=== PATIENT | female | born 1960 | race Caucasian/White ===

== ENCOUNTER 2019-03-16 08:34 | Inpatient (IN) | payer BC ==
[~2019-03-16] VITALS: Ht 162.6 cm; Wt 52.3 kg
[2019-03-16] MEDS ORDERED: amiodarone/D5 360MG/200ML BAG 200 ML IV ONE (08:47)
[2019-03-16] MEDS ORDERED: amiodarone 150mg/dext, iso-os 100 ML IV ONE (08:50)
[2019-03-16 09:39] LABS: BASOPHILS # (AUTO) 0.1 X10'3 (0-0.2); BASOPHILS % (AUTO) 0.5 % (0-1); EOSINOPHILS # (AUTO) 0.1 X10'3 (0-0.9); EOSINOPHILS % (AUTO) 1.2 % (0-6); HEMATOCRIT 48.1 % (35.0-45.0); HEMOGLOBIN 15.8 g/dl (12.0-16.0); LYMPHOCYTES # (AUTO) 0.8 X10'3 (1.1-4.8); LYMPHOCYTES % (AUTO) 6.7 % (21-51); MEAN CORPUSCULAR HEMOGLOBIN 32.9 PG (27.0-31.0); MEAN CORPUSCULAR HGB CONC 32.9 g/dL (33.0-36.5); MEAN CORPUSCULAR VOLUME 99.9 FL (78-98); MEAN PLATELET VOLUME 7.9 FL (7.4-10.4); MONOCYTES # (AUTO) 0.4 X10'3 (0-0.9); MONOCYTES % (AUTO) 3.6 % (2-12); NEUTROPHILS # (AUTO) 9.9 X10'3 (1.8-7.7); PLATELET COUNT 300 X10'3 (140-440); RED BLOOD COUNT 4.81 X10'6 (4.20-5.60); RED CELL DISTRIBUTION WIDTH 14.5 % (11.5-14.5); WHITE BLOOD COUNT 11.2 X10'3 (4.5-11.0)
[2019-03-16 09:47] LABS: ALANINE AMINOTRANSFERASE 46 U/L (12-78); ALBUMIN 3.6 G/DL (3.4-5.0); ALBUMIN/GLOBULIN RATIO 0.8 (1.1-1.5); ALKALINE PHOSPHATASE 130 IU/L (46-116); ANION GAP 3 (8-16); ASPARTATE AMINO TRANSFERASE 37 U/L (10-37); BILIRUBIN,TOTAL 0.8 MG/DL (0.1-1.0); BLOOD UREA NITROGEN 14 MG/DL (7-18); BUN/CREATININE RATIO 31.8 (6.6-38.0); CALCIUM 9.6 MG/DL (8.5-10.1); CHLORIDE 95 MMOL/L (99-107); CREATININE 0.44 MG/DL (0.40-0.90); GLUCOSE 102 MG/DL (70-104); INR 1.1 INR; PARTIAL THROMBOPLASTIN TIME 29 SECONDS (22-32); POTASSIUM 4.7 MMOL/L (3.5-5.1); SODIUM 135 MMOL/L (135-145); TOTAL CARBON DIOXIDE 36.6 MMOL/L (24-32); TOTAL PROTEIN 8.3 G/DL (6.4-8.2); eGFR > 90 ML/MIN
[2019-03-16 09:56] LABS: MAGNESIUM 1.6 MG/DL (1.5-2.4)
[2019-03-16 10:09] LABS: CLARITY,URINE SLIGHTLY CLOUDY (Clear); GLUCOSE, URINE NEGATIVE (Neg); KETONES,URINE NEGATIVE (Neg); LEUKOCYTE ESTERASE ,URINE NEGATIVE (Neg); NITRITES, URINE NEGATIVE (Neg); OCCULT BLOOD,URINE TRACE-INTACT (Neg); PROTEIN,URINE >=300 mg/dl (Neg); UROBILINOGEN,URINE 0.2 E.U/dL (0.2-1.0)
[2019-03-16] MEDS ORDERED: azithromycin/NS 500mg/250ml 250 ML IV ONE (10:10)
[2019-03-16] MEDS ORDERED: cefepime 1GM/NS ADD-VANTAGE 100 ML IV ONE (10:10)
[2019-03-16] MEDS ORDERED: albuterol 2.5 MG/3 ML nebule NEB ONE (10:15)
[2019-03-16] MEDS ORDERED: methylPREDNISolone sod succ 125mg/2ml vial IV ONE (10:15)
[2019-03-16 10:17] LABS: COLOR,URINE DARK YELLOW (Yellow); UA COLLECTION TYPE CLN CATCH MIDSTREAM
[2019-03-16 10:20] LABS: BACTERIA,URINE FEW /HPF (Neg); MUCUS STRANDS MODERATE /LPF (Neg); RBC,URINE 0-2 /HPF (0-2); SQUAMOUS EPITHELIAL CELL,UR FEW /LPF (FEW)
[2019-03-16] MEDS ORDERED: magnesium 2GM in 50ml NS 50 ML IV ONE (10:20)
[2019-03-16] MEDS ORDERED: magnesium oxide 400mg tablet PO ONE (10:20)
[2019-03-16] MEDS ORDERED: iohexol 350MG/ML 100ml bottle IV ONE (10:34)
--- NOTE | 2019-03-16 11:44 | NUR ---
BACK FROM CT AND PICC NURSE AT BEDSIDE TO START SECOND LINE.
[2019-03-16] MEDS ORDERED: diltiazem 5mg/ml 5ml inj. IV ONE (12:35)
[2019-03-16] MEDS ORDERED: magnesium 4gm in 100ml NS 100 ML IV PRN (13:05)
[2019-03-16] MEDS ORDERED: potassium Cl 40MEQ/NS 500ml 500 ML IV PRN ×2 (13:05)
[2019-03-16] MEDS ORDERED: magnesium 2GM in 50ml NS 50 ML IV PRN (13:05)
[2019-03-16] MEDS: K and/or MAG REPLACEMENT MC SCH (13:05)
[2019-03-16] MEDS ORDERED: mag hydrox/Alum hydrox/simeth 30ml oral suspension PO PRN (13:05)
[2019-03-16] MEDS ORDERED: acetaminophen 325mg tablet PO PRN ×2 (13:05)
[2019-03-16] MEDS ORDERED: magnesium hydroxide 30ml (MOM) UD suspension PO PRN (13:05)
[2019-03-16] MEDS ORDERED: potassium Cl 20 mEq SR tablet PO PRN ×2 (13:05)
[2019-03-16] MEDS ORDERED: ondansetron/PF 4mg/2ml inj IV PRN (13:05)
[2019-03-16] MEDS ORDERED: HYDROcodone/acetaminophen 10/325mg tab PO PRN (13:05)
[2019-03-16] MEDS ORDERED: amiodarone/D5 360MG/200ML BAG 200 ML IV SCH (13:05)
[2019-03-16] MEDS ORDERED: magnesium Cl slow-release 64mg tablet PO PRN (13:05)
[2019-03-16] MEDS ORDERED: HYDROcodone/acetaminophen 5mg/325mg tablet PO PRN (13:05)
[2019-03-16] MEDS ORDERED: ipratropium/albuterol 3ml nebule NEB PRN (13:05)
[2019-03-16] MEDS ORDERED: METO-411 PO (13:21)
[2019-03-16] MEDS ORDERED: LISI-600 PO (13:21)
[2019-03-16] MEDS ORDERED: APIX5TAB3 PO (13:21)
[2019-03-16 14:13] LABS: HEMOGLOBIN A1C 5.8 % (4.5-6.2)
[2019-03-16 14:15] LABS: PHOSPHORUS 4.7 MG/DL (2.3-4.5)
[2019-03-16] MEDS ORDERED: MAGN400T6 PO (14:25)
[2019-03-16] MEDS ORDERED: MULT-933 PO (14:25)
[2019-03-16] MEDS ORDERED: ALBU8.5H8 INH (14:25)
[2019-03-16] MEDS: methylPREDNISolone sod succ 125mg/2ml vial IV SCH ×2 (14:32→21:54)
[2019-03-16] MEDS: ipratropium/albuterol 3ml nebule NEB SCH ×3 (14:39→23:13)
[2019-03-16] MEDS: cefepime 1GM/NS ADD-VANTAGE 100 ML IV SCH (16:17)
--- NOTE | 2019-03-16 19:30 | NUR ---
Patient in room PCU 3015. I have received report from lissa DURANT and had the opportunity to ask questions and assume patient care.
[2019-03-16 20:30] VITALS: BP 103/79
[2019-03-16] MEDS ORDERED: temazepam 15mg capsule PO PRN (21:00)
[2019-03-16] MEDS: magnesium Cl slow-release 64mg tablet PO SCH (21:55)
[2019-03-16] MEDS: apixaban 5mg tablet PO SCH (21:55)
[2019-03-16 22:00] VITALS: BP 115/79
--- NOTE | 2019-03-17 00:21 | NUR ---
pt had 3 beats and 5 beats of Vtach. Contacted dr rowley and got a one time order of labetalol 10mg IV once
[2019-03-17] MEDS ORDERED: metoprolol tartrate 1mg/ml inj IV ONE (01:00)
[2019-03-17] MEDS: cefepime 1GM/NS ADD-VANTAGE 100 ML IV SCH ×3 (01:12→15:49)
[2019-03-17] MEDS: methylPREDNISolone sod succ 125mg/2ml vial IV SCH ×4 (01:13→21:52)
[2019-03-17 03:00] VITALS: BP 124/73
--- NOTE | 2019-03-17 04:19 | NUR ---
pt HR fluctiating bt 110 -120, got an order from dr rowley to continue amiodarone drip
[2019-03-17] MEDS: amiodarone/D5 360MG/200ML BAG 200 ML IV SCH ×3 (05:22→12:16)
--- NOTE | 2019-03-17 06:00 | NUR ---
Problems reprioritized. Patient report given, questions answered & plan of care reviewed with Monserrat DURANT.
--- NOTE | 2019-03-17 06:34 | NUR ---
Patient in room PCU 3015B. I have received report from Sandra DURANT at the bedside and had the opportunity to ask questions and assume patient care. Patient is awake and alert in bed, currently denies complaints at this time. Amio running per MD order. Bed is low and locked with call light in place, will continue to monitor patient at this time.
[2019-03-17 07:00] VITALS: BP 132/92
[2019-03-17 07:03] LABS: BASOPHILS % (AUTO) 0 % (0-1); EOSINOPHILS % (AUTO) 0 % (0-6); HEMATOCRIT 40.7 % (35.0-45.0); HEMOGLOBIN 13.5 g/dl (12.0-16.0); LYMPHOCYTES # (AUTO) 0.5 X10'3 (1.1-4.8); LYMPHOCYTES % (AUTO) 4.6 % (21-51); MEAN CORPUSCULAR HEMOGLOBIN 32.7 PG (27.0-31.0); MEAN CORPUSCULAR HGB CONC 33.2 g/dL (33.0-36.5); MEAN CORPUSCULAR VOLUME 98.5 FL (78-98); MEAN PLATELET VOLUME 8.2 FL (7.4-10.4); MONOCYTES # (AUTO) 0.1 X10'3 (0-0.9); MONOCYTES % (AUTO) 0.8 % (2-12); NEUTROPHILS # (AUTO) 11.1 X10'3 (1.8-7.7); NEUTROPHILS % (AUTO) 94.6 % (42-75); PLATELET COUNT 272 X10'3 (140-440); RED BLOOD COUNT 4.14 X10'6 (4.20-5.60); RED CELL DISTRIBUTION WIDTH 14.7 % (11.5-14.5); WHITE BLOOD COUNT 11.7 X10'3 (4.5-11.0)
[2019-03-17] MEDS: ipratropium/albuterol 3ml nebule NEB SCH ×5 (07:08→23:00)
[2019-03-17 07:16] LABS: ALANINE AMINOTRANSFERASE 38 U/L (12-78); ALBUMIN/GLOBULIN RATIO 0.8 (1.1-1.5); ALKALINE PHOSPHATASE 93 IU/L (46-116); ANION GAP 4 (8-16); ASPARTATE AMINO TRANSFERASE 34 U/L (10-37); BILIRUBIN,TOTAL 0.6 MG/DL (0.1-1.0); BLOOD UREA NITROGEN 12 MG/DL (7-18); BUN/CREATININE RATIO 19.4 (6.6-38.0); CALCIUM 9.2 MG/DL (8.5-10.1); CHLORIDE 96 MMOL/L (99-107); CHOL/HDL RATIO 2.5 (0.00-4.99); CHOLESTEROL 150 MG/DL (0-200); CREATININE 0.62 MG/DL (0.40-0.90); GLUCOSE 132 MG/DL (70-104); HDL CHOLESTEROL 61 MG/DL (35-60); LDL CHOLESTEROL 84 MG/DL (50-100); MAGNESIUM 1.8 MG/DL (1.5-2.4); PHOSPHORUS 3.5 MG/DL (2.3-4.5); POTASSIUM 4.4 MMOL/L (3.5-5.1); SODIUM 135 MMOL/L (135-145); TOTAL CARBON DIOXIDE 34.9 MMOL/L (24-32); TOTAL PROTEIN 6.7 G/DL (6.4-8.2); TRIGLYCERIDES 40 MG/DL (20-135); eGFR > 90 ML/MIN
[2019-03-17] MEDS: magnesium Cl slow-release 64mg tablet PO SCH ×2 (07:56→21:53)
[2019-03-17] MEDS: magnesium oxide 400mg tablet PO SCH (07:56)
[2019-03-17] MEDS: metoprolol succinate 25mg (24-HOUR) SR. Tablet PO SCH ×2 (07:57→08:24)
[2019-03-17] MEDS: lisinopril 20mg tablet PO SCH (07:58)
[2019-03-17] MEDS: apixaban 5mg tablet PO SCH ×2 (07:58→21:53)
[2019-03-17] MEDS ORDERED: non-formulary drug (Metoprolol Succinate 1 TAB) PO SCH (08:00)
[2019-03-17] MEDS: K and/or MAG REPLACEMENT MC SCH (08:00)
[2019-03-17] MEDS: azithromycin/NS 500mg/250ml 250 ML IV SCH (08:09)
[2019-03-17 11:00] VITALS: BP 101/71
[2019-03-17 15:00] VITALS: BP 121/82
[2019-03-17] MEDS: diltiazem 30mg tablet PO SCH ×2 (16:43→21:53)
[2019-03-17 18:00] VITALS: BP 121/82
--- NOTE | 2019-03-17 18:15 | NUR ---
Patient in room PCU 3015. I have received report from Monserrat DURANT and had the opportunity to ask questions and assume patient care.
--- NOTE | 2019-03-17 18:51 | NUR ---
Problems reprioritized. Patient report given, questions answered & plan of care reviewed with Sandra DURANT. Patient stable at transfer of care.
[2019-03-17] MEDS: lactobacillus rhamnosus 10,000 MMU CELLS/CAPSULE PO SCH (21:52)
[2019-03-17 23:00] VITALS: BP 121/82
[2019-03-18] MEDS: cefepime 1GM/NS ADD-VANTAGE 100 ML IV SCH ×3 (01:01→14:11)
[2019-03-18] MEDS: methylPREDNISolone sod succ 125mg/2ml vial IV SCH ×2 (02:38→08:51)
[2019-03-18] MEDS: diltiazem 30mg tablet PO SCH ×4 (02:38→20:27)
[2019-03-18 03:00] VITALS: BP 122/87
[2019-03-18 05:31] LABS: BASOPHILS % (AUTO) 0.2 % (0-1); EOSINOPHILS % (AUTO) 0 % (0-6); HEMATOCRIT 42.8 % (35.0-45.0); HEMOGLOBIN 13.9 g/dl (12.0-16.0); LYMPHOCYTES # (AUTO) 0.6 X10'3 (1.1-4.8); MEAN CORPUSCULAR HEMOGLOBIN 32.1 PG (27.0-31.0); MEAN CORPUSCULAR HGB CONC 32.5 g/dL (33.0-36.5); MEAN CORPUSCULAR VOLUME 98.7 FL (78-98); MEAN PLATELET VOLUME 8.1 FL (7.4-10.4); MONOCYTES # (AUTO) 0.2 X10'3 (0-0.9); MONOCYTES % (AUTO) 0.9 % (2-12); NEUTROPHILS # (AUTO) 20.3 X10'3 (1.8-7.7); NEUTROPHILS % (AUTO) 95.9 % (42-75); PLATELET COUNT 296 X10'3 (140-440); RED BLOOD COUNT 4.34 X10'6 (4.20-5.60); RED CELL DISTRIBUTION WIDTH 14.5 % (11.5-14.5); WHITE BLOOD COUNT 21.2 X10'3 (4.5-11.0)
[2019-03-18 05:38] LABS: ALANINE AMINOTRANSFERASE 36 U/L (12-78); ALBUMIN 3.1 G/DL (3.4-5.0); ALBUMIN/GLOBULIN RATIO 0.8 (1.1-1.5); ALKALINE PHOSPHATASE 91 IU/L (46-116); ANION GAP 4 (8-16); ASPARTATE AMINO TRANSFERASE 23 U/L (10-37); BILIRUBIN,TOTAL 0.5 MG/DL (0.1-1.0); BLOOD UREA NITROGEN 17 MG/DL (7-18); BUN/CREATININE RATIO 32.7 (6.6-38.0); CALCIUM 9.3 MG/DL (8.5-10.1); CHLORIDE 95 MMOL/L (99-107); CREATININE 0.52 MG/DL (0.40-0.90); GLUCOSE 128 MG/DL (70-104); MAGNESIUM 1.8 MG/DL (1.5-2.4); PHOSPHORUS 3.1 MG/DL (2.3-4.5); POTASSIUM 4.9 MMOL/L (3.5-5.1); SODIUM 131 MMOL/L (135-145); TOTAL CARBON DIOXIDE 31.8 MMOL/L (24-32); TOTAL PROTEIN 6.8 G/DL (6.4-8.2); eGFR > 90 ML/MIN
[2019-03-18 06:00] VITALS: BP 129/89
--- NOTE | 2019-03-18 06:10 | NUR ---
Patient in room PCU 3015. I have received report from BHARGAV WU, and had the opportunity to ask questions and assume patient care.
--- NOTE | 2019-03-18 06:45 | NUR ---
Problems reprioritized. Patient report given, questions answered & plan of care reviewed with Sofiya DURANT.
[2019-03-18 07:15] LABS: ANISOCYTOSIS 2+; PLATELET ESTIMATE NORMAL; TOTAL CELLS COUNTED 100
[2019-03-18] MEDS: ipratropium/albuterol 3ml nebule NEB SCH ×5 (07:59→22:57)
[2019-03-18] MEDS: metoprolol succinate 25mg (24-HOUR) SR. Tablet PO SCH ×2 (08:00→08:50)
[2019-03-18] MEDS: magnesium oxide 400mg tablet PO SCH (08:00)
[2019-03-18] MEDS: K and/or MAG REPLACEMENT MC SCH (08:00)
[2019-03-18] MEDS: lactobacillus rhamnosus 10,000 MMU CELLS/CAPSULE PO SCH ×2 (08:50→20:27)
[2019-03-18] MEDS: apixaban 5mg tablet PO SCH ×2 (08:50→20:27)
[2019-03-18] MEDS: azithromycin/NS 500mg/250ml 250 ML IV SCH (08:51)
[2019-03-18] MEDS: lisinopril 20mg tablet PO SCH (08:51)
[2019-03-18] MEDS: magnesium Cl slow-release 64mg tablet PO SCH ×2 (08:51→20:26)
[2019-03-18 11:00] VITALS: BP 116/88
[2019-03-18] MEDS: predniSONE 20 mg tablet PO SCH (12:29)
[2019-03-18 15:00] VITALS: BP 124/103
--- NOTE | 2019-03-18 15:00 | NUR ---
PATIENT AMBULATED 300 FEET, MAX HR 114, RR 22, SPO2 ON ROOM AIR REMAINED 98%. PATIENT COMPLAINED OF SHORTNESS OF BREATH AND WAS ANXIOUS DURING AMBULATION. WILL CONTINUE TO MONITOR.
[2019-03-18 18:00] VITALS: BP 113/82
--- NOTE | 2019-03-18 18:24 | NUR ---
Patient in room PCU 3015. I have received report from Sfoiya DURANT and had the opportunity to ask questions and assume patient care.
[2019-03-18 23:00] VITALS: BP 113/82
[2019-03-19] VITALS (7 sets, daily range): BP systolic 99–136; BP diastolic 59–101
[2019-03-19] MEDS: diltiazem 30mg tablet PO SCH ×4 (02:45→19:52)
--- NOTE | 2019-03-19 06:15 | NUR ---
Patient in room PCU 3015. I have received report from BHARGAV Flores and had the opportunity to ask questions and assume patient care.
--- NOTE | 2019-03-19 06:25 | NUR ---
Problems reprioritized. Patient report given, questions answered & plan of care reviewed with Lizeth DURANT.
[2019-03-19 06:39] LABS: BASOPHILS % (AUTO) 0.2 % (0-1); EOSINOPHILS % (AUTO) 0 % (0-6); HEMATOCRIT 41.6 % (35.0-45.0); HEMOGLOBIN 13.7 g/dl (12.0-16.0); LYMPHOCYTES # (AUTO) 0.7 X10'3 (1.1-4.8); LYMPHOCYTES % (AUTO) 3.5 % (21-51); MEAN CORPUSCULAR HEMOGLOBIN 32.5 PG (27.0-31.0); MEAN CORPUSCULAR HGB CONC 32.8 g/dL (33.0-36.5); MEAN PLATELET VOLUME 7.8 FL (7.4-10.4); MONOCYTES # (AUTO) 0.5 X10'3 (0-0.9); MONOCYTES % (AUTO) 2.4 % (2-12); NEUTROPHILS % (AUTO) 93.9 % (42-75); PLATELET COUNT 286 X10'3 (140-440); RED CELL DISTRIBUTION WIDTH 14.3 % (11.5-14.5); WHITE BLOOD COUNT 19.2 X10'3 (4.5-11.0)
[2019-03-19 06:42] LABS: ALANINE AMINOTRANSFERASE 39 U/L (12-78); ALBUMIN/GLOBULIN RATIO 0.9 (1.1-1.5); ALKALINE PHOSPHATASE 82 IU/L (46-116); ANION GAP 5 (8-16); ASPARTATE AMINO TRANSFERASE 24 U/L (10-37); BILIRUBIN,TOTAL 0.6 MG/DL (0.1-1.0); BLOOD UREA NITROGEN 16 MG/DL (7-18); BUN/CREATININE RATIO 37.2 (6.6-38.0); CALCIUM 9.3 MG/DL (8.5-10.1); CHLORIDE 96 MMOL/L (99-107); CREATININE 0.43 MG/DL (0.40-0.90); GLUCOSE 110 MG/DL (70-104); PHOSPHORUS 3.2 MG/DL (2.3-4.5); POTASSIUM 4.9 MMOL/L (3.5-5.1); SODIUM 130 MMOL/L (135-145); TOTAL CARBON DIOXIDE 29.5 MMOL/L (24-32); TOTAL PROTEIN 6.5 G/DL (6.4-8.2); eGFR > 90 ML/MIN
[2019-03-19] MEDS: ipratropium/albuterol 3ml nebule NEB SCH ×5 (07:25→23:00)
[2019-03-19] MEDS: cefepime 1GM/NS ADD-VANTAGE 100 ML IV SCH ×3 (07:57→17:30)
[2019-03-19] MEDS: K and/or MAG REPLACEMENT MC SCH (08:00)
[2019-03-19] MEDS: lactobacillus rhamnosus 10,000 MMU CELLS/CAPSULE PO SCH ×2 (08:08→19:51)
[2019-03-19] MEDS: lisinopril 5mg tablet PO SCH (08:09)
[2019-03-19] MEDS: apixaban 5mg tablet PO SCH ×2 (08:10→19:52)
[2019-03-19] MEDS: predniSONE 20 mg tablet PO SCH (08:11)
[2019-03-19] MEDS: azithromycin/NS 500mg/250ml 250 ML IV SCH (08:47)
--- NOTE | 2019-03-19 10:05 | NUR ---
Dr. Hills at nurse's station. Asked MD about duplicate orders on eMAR for Mg & Coreg.
[2019-03-19] MEDS: magnesium Cl slow-release 64mg tablet PO SCH ×2 (14:08→19:51)
--- NOTE | 2019-03-19 17:02 | NUR ---
Paged Dr. Hills re increased PVCs. PAGER ID: [phone] MESSAGE: Pt Kady Cesar in [id number]. Increased PVCs, singles & pairs. Other vitals WNL, HR 100s. Thanks! Lizeth DURANT [phone]
--- NOTE | 2019-03-19 19:15 | NUR ---
Problems reprioritized. Patient report given, questions answered & plan of care reviewed with BHARGAV Flores.
--- NOTE | 2019-03-19 19:41 | NUR ---
[facility] documentation: I have reviewed and agree with all interventions, assessments performed and documented by BHARGAV Dejesus.
[2019-03-20] MEDS: cefepime 1GM/NS ADD-VANTAGE 100 ML IV SCH ×3 (00:54→15:08)
[2019-03-20] MEDS: diltiazem 30mg tablet PO SCH ×3 (01:03→15:08)
[2019-03-20 03:00] VITALS: BP 130/91
[2019-03-20 05:51] LABS: BASOPHILS % (AUTO) 0.1 % (0-1); EOSINOPHILS % (AUTO) 0 % (0-6); HEMATOCRIT 38.8 % (35.0-45.0); HEMOGLOBIN 12.8 g/dl (12.0-16.0); LYMPHOCYTES # (AUTO) 1.3 X10'3 (1.1-4.8); LYMPHOCYTES % (AUTO) 9.7 % (21-51); MEAN CORPUSCULAR HEMOGLOBIN 32.5 PG (27.0-31.0); MEAN CORPUSCULAR VOLUME 98.4 FL (78-98); MEAN PLATELET VOLUME 7.7 FL (7.4-10.4); MONOCYTES # (AUTO) 0.9 X10'3 (0-0.9); MONOCYTES % (AUTO) 7.1 % (2-12); NEUTROPHILS # (AUTO) 10.9 X10'3 (1.8-7.7); NEUTROPHILS % (AUTO) 83.1 % (42-75); PLATELET COUNT 255 X10'3 (140-440); RED BLOOD COUNT 3.94 X10'6 (4.20-5.60); RED CELL DISTRIBUTION WIDTH 14.3 % (11.5-14.5); WHITE BLOOD COUNT 13.1 X10'3 (4.5-11.0)
[2019-03-20 05:59] LABS: ALANINE AMINOTRANSFERASE 58 U/L (12-78); ALBUMIN 2.9 G/DL (3.4-5.0); ALBUMIN/GLOBULIN RATIO 0.9 (1.1-1.5); ALKALINE PHOSPHATASE 84 IU/L (46-116); ANION GAP 1 (8-16); ASPARTATE AMINO TRANSFERASE 29 U/L (10-37); BILIRUBIN,TOTAL 0.5 MG/DL (0.1-1.0); BLOOD UREA NITROGEN 18 MG/DL (7-18); BUN/CREATININE RATIO 34.6 (6.6-38.0); CALCIUM 8.8 MG/DL (8.5-10.1); CHLORIDE 98 MMOL/L (99-107); CREATININE 0.52 MG/DL (0.40-0.90); GLUCOSE 85 MG/DL (70-104); MAGNESIUM 1.7 MG/DL (1.5-2.4); PHOSPHORUS 3.2 MG/DL (2.3-4.5); POTASSIUM 3.9 MMOL/L (3.5-5.1); SODIUM 133 MMOL/L (135-145); TOTAL CARBON DIOXIDE 34.1 MMOL/L (24-32); TOTAL PROTEIN 6.1 G/DL (6.4-8.2); eGFR > 90 ML/MIN
[2019-03-20 06:00] VITALS: BP 133/95
--- NOTE | 2019-03-20 06:26 | NUR ---
Problems reprioritized. Patient report given, questions answered & plan of care reviewed with Marisa DURANT.
--- NOTE | 2019-03-20 06:36 | NUR ---
Patient in room PCU 3015. I have received report from Sandra DURANT and had the opportunity to ask questions and assume patient care. Patient up to bedside commode. In no acute distress. Will continue to monitor.
--- NOTE | 2019-03-20 06:37 | NUR ---
Patient in room PCU 3015. I have received report from Sandra DURANT and had the opportunity to ask questions and assume patient care. Checked on patient, she was up to the commode , no immediate needs. Will continue to monitor
[2019-03-20] MEDS: ipratropium/albuterol 3ml nebule NEB SCH ×4 (07:21→19:37)
[2019-03-20] MEDS ORDERED: metoprolol succinate 25mg (24-HOUR) SR. Tablet PO SCH (08:00)
[2019-03-20] MEDS: K and/or MAG REPLACEMENT MC SCH (08:00)
[2019-03-20] MEDS ORDERED: predniSONE 20 mg tablet PO SCH (08:00)
[2019-03-20] MEDS: magnesium Cl slow-release 64mg tablet PO SCH (09:18)
[2019-03-20] MEDS: apixaban 5mg tablet PO SCH (09:20)
[2019-03-20] MEDS: lisinopril 5mg tablet PO SCH (09:21)
[2019-03-20] MEDS: lactobacillus rhamnosus 10,000 MMU CELLS/CAPSULE PO SCH (09:21)
[2019-03-20] MEDS ORDERED: DILT180C95 PO (09:44)
[2019-03-20] MEDS ORDERED: LEVO750T21 PO (09:44)
[2019-03-20] MEDS: azithromycin/NS 500mg/250ml 250 ML IV SCH (10:33)
[2019-03-20 11:00] VITALS: BP 94/69
[2019-03-20 15:00] VITALS: BP 120/93
--- NOTE | 2019-03-20 18:28 | NUR ---
Problems reprioritized. Patient report given, questions answered & plan of care reviewed with Shilpi DURANT.
--- NOTE | 2019-03-20 18:35 | NUR ---
[facility] documentation: I have reviewed and agree with all interventions, assessments performed and documented by Rody DURANT. [facility] Medication Administration: For this medication-pass time frame, all medication were reviewed, dispensed, administered and documented per hospital policy by Rody DURANT.
--- NOTE | 2019-03-20 18:35 | NUR ---
Problems reprioritized. Patient report given, questions answered & plan of care reviewed with Shilpi DURANT.
--- NOTE | 2019-03-20 20:00 | NUR ---
Pt discharged via [facility] accompanied by family; pt meds from pharmacy given to pt saline lock removed prior to dc
[2019-03-21] MEDS ORDERED: azithromycin 250mg tablet PO SCH (08:00)
== END 2019-03-20 20:10 | disposition home or self-care (01) | DRG 193 ==
LOC: EDBD 08:35 → ER 08:35 → PCU 3S 19:43 → CMPBEDREQ 03-17 15:13
PROVIDERS: ADMIT Family Medicine; ATTEND Internal Medicine
PROC: B32T1ZZ Computerized Tomography (CT Scan) of Left Pulmonary Artery using Low Osmolar Contrast (ICD-10-PCS; principal; 2019-03-16)
PROC: B3201ZZ Computerized Tomography (CT Scan) of Thoracic Aorta using Low Osmolar Contrast (ICD-10-PCS; 2019-03-16)
PROC: B32S1ZZ Computerized Tomography (CT Scan) of Right Pulmonary Artery using Low Osmolar Contrast (ICD-10-PCS; 2019-03-16)
DX: J18.9 Pneumonia, unspecified organism (principal); J96.01 Acute respiratory failure with hypoxia; E87.1 Hypo-osmolality and hyponatremia; I47.2 Ventricular tachycardia; I50.42 Chronic combined systolic (congestive) and diastolic (congestive) heart failure; J44.0 Chronic obstructive pulmonary disease with (acute) lower respiratory infection; J44.1 Chronic obstructive pulmonary disease with (acute) exacerbation; I11.0 Hypertensive heart disease with heart failure; I48.0 Paroxysmal atrial fibrillation; Z79.01 Long term (current) use of anticoagulants; Z79.899 Other long term (current) drug therapy; Z87.11 Personal history of peptic ulcer disease; Z87.891 Personal history of nicotine dependence; Z90.49 Acquired absence of other specified parts of digestive tract; Z90.710 Acquired absence of both cervix and uterus; Z93.3 Colostomy status; Z99.81 Dependence on supplemental oxygen
CPT/HCPCS: 36415; 71045; 71275; 80053; 80061; 81001; 83036; 83605; 83735; 83880; 84100; 84145; 84443; 85025; 85610; 85730; 87040; 87070; 87088; 93005; 93306; 94640; 94760; 96365; 96367; 96375; 97116; 99291; G0378; J0282; J0456; J0692; J2930; J3475; J3490; J7512; Q9967